=== PATIENT | female | born 1980 | race Caucasian/White ===

== ENCOUNTER 2019-01-27 06:10 | Inpatient (IN) | payer MEDICAID ==
[~2019-01-27] VITALS: Ht 144.8 cm; Wt 65.8 kg
[~2019-01-27 06:10] MED LIST: HYDROmorphone 1 MG/ML AMP IVP PRN; METHYLERGONOVINE 0.2 MG/ML AMP ONE; NALOXONE 0.4 MG/ML VIAL IVP PRN; ONDANSETRON 4 MG/2 ML VIAL IVP PRN; diphenhydrAMINE 50 MG/ML VIAL IVP PRN
[2019-01-27] MEDS ORDERED: LACTATED RINGERS 1,000 ML IV SCH ×2 (06:58→18:44)
[2019-01-27] MEDS ORDERED: PREN-380 PO (06:58)
[2019-01-27] MEDS ORDERED: FERR-252 PO (06:58)
[2019-01-27] MEDS ORDERED: CITRIC ACID/SODIUM CITRATE 30 ML UDC PO SCH (07:00)
[2019-01-27 08:19] LABS: BASOPHILS % (AUTO) 0.4 % (0.0-2.0); EOSINOPHILS % (AUTO) 0.1 % (0.0-4.0); HEMATOCRIT 41.5 % (36-48); HEMOGLOBIN 14.1 g/dL (12.0-16.0); LYMPHOCYTES # (AUTO) 2.2 K/uL (2.5-16.5); LYMPHOCYTES % (AUTO) 34.8 % (20.5-51.1); MEAN CORPUSCULAR HEMOGLOBIN 31 pg (27-31); MEAN CORPUSCULAR HGB CONC 34 g/dL (33-37); MEAN CORPUSCULAR VOLUME 91.9 fL (80-94); MONOCYTES # (AUTO) 0.4 K/uL (0.8-1.0); MONOCYTES % (AUTO) 6.4 % (1.7-9.3); NEUTROPHILS # (AUTO) 3.8 K/uL (1.8-7.7); NEUTROPHILS % (AUTO) 58.3 % (42.2-75.2); PLATELET COUNT (AUTO) 166 K/uL (140-450); RED BLOOD CELL COUNT(AUTO) 4.51 MIL/uL (4.20-5.40); RED CELL DISTRIBUTION WIDTH 14.2 % (11.6-13.7); WHITE BLOOD COUNT (AUTO) 6.4 K/uL (4.8-10.8)
[2019-01-27 08:22] LABS: ANION GAP 15.8 (8-16); CARBON DIOXIDE 21.2 mmol/L (21-32); CREATININE 0.6 mg/dL (0.6-1.3)
[2019-01-27 08:28] LABS: ALBUMIN 2.8 g/dL (3.4-5.0); TOTAL BILIRUBIN 0.3 mg/dL (0.0-1.0)
[2019-01-27 08:31] LABS: PROTHROMBIN TIME 8.8 secs (10.8-13.4)
[2019-01-27] MEDS ORDERED: CITRIC ACID/SODIUM CITRATE 30 ML UDC ONE (09:05)
[2019-01-27 09:16] VITALS: BP 133/66
[2019-01-27] MEDS ORDERED: MORPHINE PRES FREE 10 MG/10 ML AMP IV ONE (10:00)
[2019-01-27] MEDS ORDERED: fentaNYL 0.05 MG/ML VIAL ONE (10:00)
[2019-01-27] MEDS ORDERED: KETOROLAC 30 MG/ML VIAL IVP PRN (10:35)
[2019-01-27] MEDS ORDERED: diphenhydrAMINE 50 MG/ML VIAL IVP PRN (10:35)
[2019-01-27] MEDS ORDERED: NALOXONE 0.4 MG/ML VIAL IVP PRN ×3 (10:35)
[2019-01-27] MEDS ORDERED: ONDANSETRON 4 MG/2 ML VIAL IVP PRN ×2 (10:35)
[2019-01-27] MEDS ORDERED: NALBUPHINE 10 MG/ML AMP IVP PRN (10:35)
[2019-01-27] MEDS ORDERED: OXYTOCIN 20 UNITS/LR PREMIX 1,000 ML IV ONE (12:17)
[2019-01-27] MEDS ORDERED: ONDANSETRON 4 MG/2 ML VIAL ONE (12:45)
[2019-01-27] MEDS ORDERED: CARBOPROST 250 MCG/ML AMP IM PRN (18:45)
[2019-01-27] MEDS ORDERED: PROMETHAZINE 25 MG/ML VIAL IVP PRN (18:45)
[2019-01-27] MEDS ORDERED: METHYLERGONOVINE 0.2 MG/ML AMP IM PRN ×2 (18:45→22:30)
[2019-01-27 21:00] LABS: APPEARANCE,URINE CLEAR (CLEAR); BILIRUBIN,URINE NEGATIVE (NEGATIVE); BLOOD, URINE 3+ (NEGATIVE); COLOR,URINE YELLOW (YELLOW); LEUKOCYTE ESTERASE ,URINE NEGATIVE (NEGATIVE); NITRITE, URINE NEGATIVE (NEGATIVE); UGLUCOSE NEGATIVE (NEGATIVE)
[2019-01-27 21:32] LABS: RBC,URINE 80-100 /HPF (0-5); WBC,URINE NONE SEEN /HPF (0-5)
[2019-01-27] MEDS ORDERED: OXYTOCIN 10 UNITS in LACTATED RINGERS 1,000 ML IV SCH (22:27)
[2019-01-27] MEDS ORDERED: MEASLES, MUMPS, AND RUBELLA 1 VIAL SQVAC PRN (22:30)
[2019-01-28] MEDS ORDERED: KETOROLAC 30 MG/ML VIAL IM/IVP SCH
[2019-01-28 06:36] LABS: BASOPHILS % (AUTO) 0.1 % (0.0-2.0); HEMATOCRIT 34.6 % (36-48); LYMPHOCYTES # (AUTO) 1.8 K/uL (2.5-16.5); LYMPHOCYTES % (AUTO) 16.9 % (20.5-51.1); MEAN CORPUSCULAR HEMOGLOBIN 32 pg (27-31); MEAN CORPUSCULAR HGB CONC 35 g/dL (33-37); MEAN CORPUSCULAR VOLUME 91.5 fL (80-94); MONOCYTES # (AUTO) 0.6 K/uL (0.8-1.0); MONOCYTES % (AUTO) 5.6 % (1.7-9.3); NEUTROPHILS # (AUTO) 8.1 K/uL (1.8-7.7); NEUTROPHILS % (AUTO) 77.4 % (42.2-75.2); PLATELET COUNT (AUTO) 158 K/uL (140-450); RED BLOOD CELL COUNT(AUTO) 3.79 MIL/uL (4.20-5.40); RED CELL DISTRIBUTION WIDTH 14.3 % (11.6-13.7); WHITE BLOOD COUNT (AUTO) 10.5 K/uL (4.8-10.8)
[2019-01-28] MEDS ORDERED: BISACODYL 10 MG SUPP RC SCH (09:00)
[2019-01-28] MEDS: oxyCODONE/APAP 5/325 MG 1 TAB TAB PO PRN ×2 (16:21→21:33)
[2019-01-29] MEDS: oxyCODONE/APAP 5/325 MG 1 TAB TAB PO PRN (17:03)
[2019-01-30] MEDS: oxyCODONE/APAP 5/325 MG 1 TAB TAB PO PRN ×2 (09:13→17:14)
[2019-01-30] MEDS ORDERED: INFLUENZA VACCINE QUAD 0.5 ML SYR IMVAC PRN (21:20)
[2019-01-31] MEDS: oxyCODONE/APAP 5/325 MG 1 TAB TAB PO PRN ×2 (01:20→09:53)
[2019-01-31] MEDS ORDERED: IBUPROFEN 800 MG TAB PO PRN (08:50)
== END 2019-01-31 16:00 | disposition home or self-care (01) | DRG 540 ==
LOC: MFCC 06:10
PROVIDERS: ADMIT Obstetrics & Gynecology; ATTEND Obstetrics & Gynecology
PROC: 3E0234Z Introduction of Serum, Toxoid and Vaccine into Muscle, Percutaneous Approach (ICD-10-PCS; 2019-01-27)
PROC: 0DNW0ZZ Release Peritoneum, Open Approach (ICD-10-PCS; 2019-01-27)
PROC: 10D00Z1 Extraction of Products of Conception, Low, Open Approach (ICD-10-PCS; principal; 2019-01-27 09:00)
DX: O34.211 Maternal care for low transverse scar from previous cesarean delivery (principal); K83.1 Obstruction of bile duct; O60.23X0 Term delivery with preterm labor, third trimester, not applicable or unspecified; O26.62 Liver and biliary tract disorders in childbirth; R71.0 Precipitous drop in hematocrit; O34.13 Maternal care for benign tumor of corpus uteri, third trimester; D25.9 Leiomyoma of uterus, unspecified; O99.62 Diseases of the digestive system complicating childbirth; K66.0 Peritoneal adhesions (postprocedural) (postinfection); O26.893 Other specified pregnancy related conditions, third trimester; L29.9 Pruritus, unspecified; K21.9 Gastro-esophageal reflux disease without esophagitis; O77.0 Labor and delivery complicated by meconium in amniotic fluid; Z23 Encounter for immunization; Z3A.37 37 weeks gestation of pregnancy; Z37.0 Single live birth
CPT/HCPCS: 36415; 51702; 80053; 81001; 85025; 85379; 85384; 85610; 85730; 86592; 86886; 86900; 86901; 87086; 90715; J0690; J1885; J2270; J2405; J2590; J3010; J7060; J7120

== ENCOUNTER 2022-07-29 06:50 | Emergency (ER) | payer MEDICAID ==
[~2022-07-29] VITALS: Ht 157.5 cm; Wt 65.8 kg
[~2022-07-29 06:50] MED LIST changes: +FERR-252 PO; -HYDROmorphone 1 MG/ML AMP IVP PRN; -METHYLERGONOVINE 0.2 MG/ML AMP ONE; -NALOXONE 0.4 MG/ML VIAL IVP PRN; -ONDANSETRON 4 MG/2 ML VIAL IVP PRN; +PREN-380 PO; -diphenhydrAMINE 50 MG/ML VIAL IVP PRN
[2022-07-29 06:55] VITALS: BP 161/112
--- NOTE | 2022-07-29 07:01 | NUR ---
TO LOBBY FOLLOWING TRIAGE
--- NOTE | 2022-07-29 07:30 | NUR ---
Patient ambulated to bed 12.
[2022-07-29] MEDS ORDERED: ONDANSETRON 4 MG/2 ML VIAL IVP ONE (07:50)
[2022-07-29] MEDS ORDERED: MORPHINE SULFATE 4 MG/ML SYR IVP ONE (07:50)
[2022-07-29] MEDS ORDERED: NACL 0.9% 1,000 ML IV ONE (07:50)
[2022-07-29 08:12] LABS: BASOPHILS % (AUTO) 0.3 % (0.0-2.0); EOSINOPHILS # (AUTO) 0.2 K/uL (0-0.4); HEMOGLOBIN 11.8 g/dL (12.0-16.0); LYMPHOCYTES # (AUTO) 1.7 K/uL (2.5-16.5); LYMPHOCYTES % (AUTO) 9.4 % (20.5-51.1); MEAN CORPUSCULAR HEMOGLOBIN 27 pg (27-31); MEAN CORPUSCULAR HGB CONC 33 g/dL (33-37); MEAN CORPUSCULAR VOLUME 83.7 fL (80-94); MONOCYTES # (AUTO) 0.9 K/uL (0.8-1.0); MONOCYTES % (AUTO) 5.2 % (1.7-9.3); NEUTROPHILS % (AUTO) 84.1 % (42.2-75.2); PLATELET COUNT (AUTO) 368 K/uL (140-450); RED CELL DISTRIBUTION WIDTH 14.3 % (11.6-13.7); WHITE BLOOD COUNT (AUTO) 17.8 K/uL (4.8-10.8)
--- NOTE | 2022-07-29 08:16 | NUR ---
ASSUMED PATIENT CARE, NURSING ASSESSMENT COMPLETED.
--- NOTE | 2022-07-29 08:30 | NUR ---
TO CT SCAN VIA [facility].
[2022-07-29 08:43] LABS: ALBUMIN 3.4 g/dL (3.4-5.0); CARBON DIOXIDE 27.6 mmol/L (21-32); CREATININE 0.7 mg/dL (0.6-1.3); POTASSIUM 3.6 mmol/L (3.5-5.1); TOTAL BILIRUBIN 0.2 mg/dL (0.0-1.0)
[2022-07-29 09:49] LABS: APPEARANCE,URINE SL CLOUDY (CLEAR); BILIRUBIN,URINE NEGATIVE (NEGATIVE); BLOOD, URINE NEGATIVE (NEGATIVE); COLOR,URINE YELLOW (YELLOW); LEUKOCYTE ESTERASE ,URINE NEGATIVE (NEGATIVE); NITRITE, URINE NEGATIVE (NEGATIVE); PH,URINE 5.5 (5.0-9.0); UGLUCOSE NEGATIVE (NEGATIVE)
[2022-07-29] MEDS ORDERED: IBUP-2213 PO (09:51)
[2022-07-29] MEDS ORDERED: SUCR1TAB35 PO (09:52)
[2022-07-29] MEDS ORDERED: SIME125T38 PO (09:52)
[2022-07-29] MEDS ORDERED: BEN10 PO (09:52)
[2022-07-29] MEDS ORDERED: ONDA-188 SL (09:52)
[2022-07-29 10:21] VITALS: BP 122/65
--- NOTE | 2022-07-29 10:22 | NUR ---
Patient discharged with v/s stable. Written and verbal after care instructions given and explained. Patient alert, oriented and verbalized understanding of instructions. Ambulatory with steady gait. All questions addressed prior to discharge. ID band removed. Patient advised to follow up with PMD. Rx of BENTYL, IBUPROFREN, ZOFRAN, MYLANTA, CARAFATE given. Patient educated on indication of medication including possible reaction and side effects. Opportunity to ask questions provided and answered.
== END 2022-07-29 10:21 | disposition home or self-care (01) ==
LOC: MED 06:50
DX: R10.31 Right lower quadrant pain (principal); Z79.899 Other long term (current) drug therapy
CPT/HCPCS: 36415; 74176; 76856; 80053; 81003; 81025; 83690; 85025; 87086; 96361; 96374; 96375; 99285; J2270; J2405; Q0092; J7030